=== PATIENT | male | born 1980 | race Caucasian/White ===

== ENCOUNTER 2020-10-05 17:35 | Emergency (ER) | payer MEDICAID ==
[~2020-10-05] VITALS: Ht 180.3 cm; Wt 85.9 kg
[2020-10-05 19:28] LABS: BASOPHILS % (AUTO) 0.4 % (0-1); EOSINOPHILS # (AUTO) 0.3 X10'3 (0-0.9); EOSINOPHILS % (AUTO) 4.3 % (0-6); HEMATOCRIT 48.7 % (42.0-52.0); HEMOGLOBIN 16.8 g/dl (14.0-17.9); LYMPHOCYTES # (AUTO) 0.7 X10'3 (1.1-4.8); LYMPHOCYTES % (AUTO) 10.4 % (21-51); MEAN CORPUSCULAR HEMOGLOBIN 29.4 PG (27.0-31.0); MEAN CORPUSCULAR HGB CONC 34.5 g/dL (33.0-36.5); MEAN CORPUSCULAR VOLUME 85.3 FL (78-98); MEAN PLATELET VOLUME 7.9 FL (7.4-10.4); MONOCYTES # (AUTO) 0.5 X10'3 (0-0.9); MONOCYTES % (AUTO) 6.5 % (2-12); NEUTROPHILS # (AUTO) 5.4 X10'3 (1.8-7.7); NEUTROPHILS % (AUTO) 78.4 % (42-75); PLATELET COUNT 274 X10'3 (140-440); RED BLOOD COUNT 5.72 X10'6 (4.70-6.10)
[2020-10-05 19:30] LABS: CLARITY,URINE CLEAR (Clear); COLOR,URINE YELLOW (Yellow); GLUCOSE, URINE NEGATIVE (Neg); KETONES,URINE NEGATIVE (Neg); LEUKOCYTE ESTERASE ,URINE NEGATIVE (Neg); NITRITES, URINE NEGATIVE (Neg); OCCULT BLOOD,URINE NEGATIVE (Neg); PROTEIN,URINE NEGATIVE (Neg); UROBILINOGEN,URINE 0.2 E.U/dL (0.2-1.0)
[2020-10-05 19:31] LABS: UA COLLECTION TYPE CLN CATCH MIDSTREAM
[2020-10-05 19:39] LABS: ALANINE AMINOTRANSFERASE 58 U/L (12-78); ALBUMIN 4.1 G/DL (3.4-5.0); ALBUMIN/GLOBULIN RATIO 1.2 (1.1-1.5); ALKALINE PHOSPHATASE 81 IU/L (46-116); ANION GAP 8 (8-16); ASPARTATE AMINO TRANSFERASE 30 U/L (10-37); BILIRUBIN,TOTAL 0.6 MG/DL (0.1-1.0); BLOOD UREA NITROGEN 25 MG/DL (7-18); BUN/CREATININE RATIO 21.9 (5.4-32.0); CALCIUM 8.6 MG/DL (8.5-10.1); CHLORIDE 105 MMOL/L (99-107); CREATININE 1.14 MG/DL (0.60-1.10); GLUCOSE 94 MG/DL (70-104); LIPASE 89 U/L (73-393); MAGNESIUM 2.2 MG/DL (1.5-2.4); POTASSIUM 4.2 MMOL/L (3.5-5.1); SODIUM 141 MMOL/L (135-145); TOTAL CARBON DIOXIDE 28.1 MMOL/L (24-32); TOTAL PROTEIN 7.5 G/DL (6.4-8.2); eGFR 71 ML/MIN
[2020-10-05] MEDS ORDERED: normal saline 1000ML IV soln IVB ONE (20:55)
[2020-10-05] MEDS ORDERED: ondansetron/PF 4mg/2ml inj IV ONE (20:55)
[2020-10-05] MEDS ORDERED: ketorolac tromethamine 15mg/ml inj. IV ONE (20:55)
[2020-10-05 21:02] LABS: ETHANOL < 0.010 GM/DL (0.0-0.010)
[2020-10-05 21:09] LABS: D-DIMER 0.31 MG/L FEU (0-0.50)
[2020-10-05 21:10] LABS: C-REACTIVE PROTEIN 0.62 MG/DL (0.0-0.5)
[2020-10-05 21:19] LABS: URINE AMPHETAMINE SCREEN NEGATIVE (Neg); URINE BARBITUATE SCREEN NEGATIVE (Neg); URINE BENZODIAZEPINES SCREEN NEGATIVE (Neg); URINE CANNABINOID SCREEN NEGATIVE (Neg); URINE COCAINE SCREEN NEGATIVE (Neg); URINE METHADONE SCREEN NEGATIVE (Neg); URINE OPIATE SCREEN NEGATIVE (Neg); URINE PHENCYCLIDINE SCREEN NEGATIVE (Neg)
[2020-10-05] MEDS ORDERED: insulin regular, human 10 units/0.1 ml syringe SQ ONE (21:30)
[2020-10-05] MEDS ORDERED: ONDA4TAB6 PO (22:24)
[2020-10-06 00:04] VITALS: BP 137/85
== END 2020-10-06 00:07 | disposition home or self-care (01) ==
LOC: ER 17:36
DX: K52.9 Noninfective gastroenteritis and colitis, unspecified (principal); Z20.822 Contact with and (suspected) exposure to COVID-19; R51.9 Headache, unspecified; Z79.899 Other long term (current) drug therapy; Z72.89 Other problems related to lifestyle
CPT/HCPCS: 36415; 80053; 80305; 80320; 81003; 83690; 83735; 84145; 85025; 85379; 86140; 87635; 96361; 96374; 96375; 99284; C9803; J1885; J2405; J7030

== ENCOUNTER 2022-10-01 18:35 | Emergency (ER) | payer MEDICAID ==
[~2022-10-01] VITALS: Ht 180.3 cm; Wt 90.9 kg
[~2022-10-01 18:35] MED LIST: ONDA4TAB6 PO
[2022-10-01 18:55] VITALS: BP 126/78; PULSE 68; RESP 18; TEMP 98.4; O2SAT 97
== END 2022-10-01 21:07 | disposition left against medical advice (07) ==
LOC: ER 18:36
DX: U07.1 COVID-19 (principal); Z53.21 Procedure and treatment not carried out due to patient leaving prior to being seen by health care provider
CPT/HCPCS: 87811; 99281